=== PATIENT | female | born 1955 | race Caucasian/White ===

== ENCOUNTER → 2023-06-21 07:23 | Outpatient (REF) | payer OTHER, SELFPAY | LOC: RAD 07:23 | PROVIDERS: ATTENDING PHYSICIAN Surgery Vascular Surgery; FAMILY PHYSICIAN Family Medicine | DX: I71.40 Abdominal aortic aneurysm, without rupture, unspecified (principal) | CPT/HCPCS: 76770 ==

== ENCOUNTER → 2023-12-11 08:12 | Outpatient (REF) | payer OTHER, SELFPAY | LOC: HWWDC 08:12 | PROVIDERS: ATTENDING PHYSICIAN Physician Assistant Medical | DX: Z12.31 Encounter for screening mammogram for malignant neoplasm of breast (principal) | CPT/HCPCS: 77063; 77067 ==

== ENCOUNTER → 2023-12-25 07:40 | Outpatient (REF) | payer OTHER, SELFPAY | LOC: RAD 07:40 | PROVIDERS: ATTENDING PHYSICIAN Registered Nurse; FAMILY PHYSICIAN Physician Assistant Medical | DX: I71.40 Abdominal aortic aneurysm, without rupture, unspecified (principal) | CPT/HCPCS: 76770 ==

== ENCOUNTER → 2024-01-05 07:49 | Outpatient (REF) | payer OTHER, SELFPAY ==
[2024-01-05 11:12] LABS: Blood Urea Nitrogen 13 mg/dl (7-17); Calcium 9.2 mg/dl (8.4-10.2); Carbon Dioxide 26 mmol/L (22-30); Chloride 103 mmol/L (98-107); Glucose 131 mg/dl (70-99); Potassium 4.6 mmol/L (3.5-5.1); Sodium 145 mmol/L (135-145); eGFR > 60.00
== END ==
LOC: REG 07:49
PROVIDERS: ATTENDING PHYSICIAN Registered Nurse; FAMILY PHYSICIAN Physician Assistant Medical
DX: I71.40 Abdominal aortic aneurysm, without rupture, unspecified (principal)
CPT/HCPCS: 36415; 80048

== ENCOUNTER → 2024-02-05 07:36 | Outpatient (REF) | payer OTHER, SELFPAY | LOC: RAD 07:36 | PROVIDERS: ATTENDING PHYSICIAN Registered Nurse; FAMILY PHYSICIAN Physician Assistant Medical | DX: I71.40 Abdominal aortic aneurysm, without rupture, unspecified (principal) | CPT/HCPCS: 74174; Q9967 ==

== ENCOUNTER → 2024-08-14 08:06 | Outpatient (REF) | payer OTHER, SELFPAY | LOC: RAD 08:06 | PROVIDERS: ATTENDING PHYSICIAN Surgery Vascular Surgery; FAMILY PHYSICIAN Physician Assistant Medical | DX: I71.43 Infrarenal abdominal aortic aneurysm, without rupture (principal); I71.40 Abdominal aortic aneurysm, without rupture, unspecified | CPT/HCPCS: 71275; 74174; Q9967 ==

== ENCOUNTER → 2025-02-27 08:27 | Outpatient (REF) | payer OTHER, SELFPAY | LOC: RAD 08:27 | PROVIDERS: ATTENDING PHYSICIAN Surgery Vascular Surgery; FAMILY PHYSICIAN Physician Assistant Medical | DX: I71.40 Abdominal aortic aneurysm, without rupture, unspecified (principal) | CPT/HCPCS: 74174; Q9967 ==

== ENCOUNTER → 2025-04-04 06:52 | Outpatient (REF) | payer OTHER, SELFPAY ==
--- NOTE | 2025-04-04 08:15 | CARDSERVLU ---
Echocardiogram with Lumason completed after protocol screening completed. Allergies verified.
Patent IV site: __Rt hand___
IV site flushed with 0.9% NaCl pre and post administration.
Diluted bolus method utilized to enhance visualization of ventricular jaimes.
Total volume given: __1.5__ mL
Patient tolerated all procedures well without complications.
# 22 ernestine placed Rt hand. Lumason given. INT d/c'd. Pressure held. No bleeding noted.
== END ==
LOC: RCS 06:52
PROVIDERS: ATTENDING PHYSICIAN Internal Medicine Cardiovascular Disease; FAMILY PHYSICIAN Physician Assistant Medical
DX: R06.02 Shortness of breath (principal); Z01.810 Encounter for preprocedural cardiovascular examination; I71.43 Infrarenal abdominal aortic aneurysm, without rupture; R94.31 Abnormal electrocardiogram [ECG] [EKG]
CPT/HCPCS: 93307; Q9957

== ENCOUNTER 2025-04-08 09:20 | Inpatient (IN) | payer OTHER, SELFPAY ==
[2025-04-03 09:39] VITALS: BMI 51.7
[2025-04-03 10:19] LABS: Hematocrit 41.9 % (37.0-47.0); Hemoglobin 13.4 g/dL (12.0-16.0); INR 1.03; Mean Corp Hgb Conc. 32.0 g/dL (33.0-37.0); Mean Corpuscular Volume 91.7 fL (81.0-99.0); Nucleated Red Blood Cells % 0 %; PT 13.3 Sec (11.4-14.6); Platelet Count 334 10^3/uL (130-400); Red Cell Dist. Width 13.4 % (11.5-14.5)
[2025-04-03 10:20] LABS: APTT 27.8 Sec (23.4-35.0)
[2025-04-03 10:35] LABS: Blood Urea Nitrogen 12 mg/dl (7-17); Calcium 9.4 mg/dl (8.4-10.2); Carbon Dioxide 27 mmol/L (22-30); Chloride 102 mmol/L (98-107); Estimated Creatinine Clearance 112 ml/min; Glucose 131 mg/dl (70-99); Potassium 4.5 mmol/L (3.5-5.1); Sodium 138 mmol/L (135-145); eGFR > 60.00
[2025-04-08] VITALS (16 sets, daily range): BP systolic 91–158; BP diastolic 37–99
[2025-04-08 10:33] LABS: Glucose - Point of Care 129 mg/dl (70-99)
[2025-04-08] MEDS: BACTROBAN NASAL 1 GRAM NASAL (10:35)
[2025-04-08] MEDS: NSS 500 IV (10:35)
[2025-04-08] MEDS: PERIDEX 0.12% ORAL RINSE 15 ML PO (10:35)
--- NOTE | 2025-04-08 10:49 | W.SUR.PREOP ---
Pre-Operative Surgical Note
-
I have examined this patient prior to the performance of the scheduled procedure.
The patient's condition is unchanged from the time of the current History and
Physical and the patient is able to undergo the scheduled procedure.
[2025-04-08] MEDS: VANCOCIN 530 MG IV (13:06)
[2025-04-08 14:21] LABS: ACT-LR - POC 297 Seconds (116-155)
[2025-04-08 15:13] LABS: ACT-LR - POC 232 Seconds (116-155)
--- NOTE | 2025-04-08 15:32 | W.SUR.POST ---
Surgical Immediate Post Op
Note
Pre Op Diagnosis: AAA
Post Op Diagnosis: AAA
Procedure Performed: EVAR
Primary Surgeon: Sav Daniel III, MD
Secondary Surgeons: N/A
Anesthesia: GETA
Estimated Blood Loss: 50 ml
Fluids: See anesthesia flowsheet
Drains/Shunts: N/A
Specimens/Cultures: N/A
Doppler/Duplex/Angio (Y/N): Y
Complications: None
Operative Findings: Successful exclusion of abdominal aortic aneurysm via endovascular approach
[2025-04-08 15:39] LABS: Glucose - Point of Care 152 mg/dl (70-99)
[2025-04-08 16:06] LABS: Hematocrit 37.4 % (37.0-47.0); Hemoglobin 11.7 g/dL (12.0-16.0); Mean Corp Hgb Conc. 31.3 g/dL (33.0-37.0); Mean Corpuscular Volume 94.2 fL (81.0-99.0); Platelet Count 282 10^3/uL (130-400); Red Cell Dist. Width 13.2 % (11.5-14.5)
[2025-04-08] MEDS: DILAUDID 0.25 MG IV (16:09)
--- NOTE | 2025-04-08 16:27 | OR.RPT ---
Operative Report
Operative Report
Date of Operation: 04/08/2025
Pre Op Diagnosis:
1. Infrarenal abdominal aortic aneurysm
2. 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
Post Op Diagnosis:
1. Infrarenal abdominal aortic aneurysm
2. 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
Procedure:
1. Infrarenal abdominal aortic aneurysm repair using Endologix [place] device:
23 mm [place] main body
10 x 160 mm Ovation right iliac limb (extending into proximal external iliac artery)
14 x 120 mm Ovation left iliac limb
2. Coil embolization of right proximal internal iliac artery (6 mm Vika coils)
3. Introduce wire/catheter into aorta from bilateral common femoral artery access
4. Ultrasound-guided percutaneous access to the bilateral common femoral arteries
5. Pro-glide closure bilateral common femoral arteries
Surgeon: Sav Daniel III, MD
Anesthesia: General
Complications: None
Estimated Blood Loss: 50 cc
History and Indications for Procedure: 69-year-old female with large infrarenal abdominal aortic aneurysm and a saccular aneurysm near the right iliac bifurcation arising from either the distal common iliac artery or the very proximal right internal
iliac artery
Procedure in Detail: Joan Delatorre was correctly identified and placed supine on the operating table. After adequate induction of anesthesia the abdomen, pelvis and bilateral groins were positioned, prepped and draped in the usual sterile fashion.
Preoperative antibiotics were administered. A time out procedure was performed with the nursing and anesthesia staff confirming the patients identity as well as the nature and laterality of the procedure.
Under ultrasound guidance, bilateral femoral artery sheath access was obtained. The arteries were patent and without calcification. A pre-close technique was performed bilaterally with 2 offset Proglide closure devices. The sutures were secured and
tucked under surgical towels for use at the end of the case. An 11 Belgian sheath was placed on the right and an 8 Belgian sheath was placed on the left. The patient was systemically heparinized.
From the right femoral access a Bentson wire was positioned in the descending thoracic aorta. From the left femoral access I advanced a fischer's hook catheter and Glidewire to the aortic bifurcation. I selected the right common iliac artery and
external iliac artery with the Glidewire. Under roadmap guidance using a KMP catheter that was navigated up and over the aortic bifurcation I selected the right internal iliac artery with a Glidewire and catheter. The catheter was advanced into
the proximal internal iliac artery and proper positioning was confirmed. Four 6 mm Vika coils were packed into the proximal right internal iliac artery. Subsequent arteriogram demonstrated a satisfactory result with proper positioning of the
coils in the desired location. I then removed the KMP catheter from the internal iliac artery and pulled it back to the aortic bifurcation. The Bentson wire and KMP were advanced into the proximal descending thoracic aorta. The wire was exchanged
out for a Lunderquist wire. A 16 Belgian dry seal sheath was then advanced over the [place]under[place] wire from the left femoral artery access to the distal abdominal aorta.
A marker pigtail catheter was positioned in the abdominal aorta from the right femoral artery access over the Bentson wire. The 23 mm ALTO aortic main body device was then loaded onto the left femoral Lunderquist wire through the 16 Belgian dry seal
sheath. The delivery system and aortic main body were oriented to the desired position. The delivery system was advanced into the abdominal aorta. An aortogram was performed and clearly identified the origins of the renal arteries bilaterally. The
delivery system was then positioned such that the radiopaque fabric markers were just below the lowest renal artery (right).
The outer sheath was then retracted until the knob met the handle. The first segment of the suprarenal fixation was then deployed by turning the yellow release knob and pulling. I removed the white From the balloon injection port and inflated the
integrated balloon with 5 cc of 4:1 saline:contrast to open the mid crown. I then completely deflated the integrated balloon.
Using the radiopaque markers for orientation, the C-arm was positioned to eliminate any parallax. Another aortogram was performed under magnification view. The main body was then precisely positioned below the lowest renal artery. The pigtail
catheter was pulled down into the AAA away from the suprarenal fixation stent. With the main body in the desired location the remainder of the suprarenal fixation stent was deployed by pulling the second release knob.
The polymer was prepared on the back table. The green fill cap was then removed from the polymer injection port on the handle and the fill syringe was attached to it.The autoinjector was connected to the fill syringe and polymer was instilled.
Fluoro was used to intermittently observe filling of the main body with polymer. A timer was started to keep track of the polymer set time.
A glidewire was introduced through the pigtail catheter from the right. Using a KMP catheter and a glidewire, contralateral gate access was obtained. The catheter was spun in the main body to confirm proper position. The glidewire and catheter were
then advanced proximally. The wire was exchanged out for an Amplatz wire.
A 10 mm x 160 mm iliac limb was then inserted over the stiff wire and advance to the proper position with proper overlap. The limb was deployed without difficulty under roadmap guidance with the distal end in the the proximal right external iliac
artery, covering the saccular aneurysm and the coiled internal iliac artery.
At the 14 minute venus for polymer fill the integrated balloon was used to profile of the proximal aortic seal zone.
The third release knob was pulled to release the catheter from the aortic main body. The catheter handle on the main body deployment system was retracted to reseat the nosecone in the delivery system outer sheath.
A retrograde arteriogram was then performed on the left with a pigtail catheter over the stiff wire. The iliac bifurcation was visualized and lengths were measured for the ipsilateral iliac limb. A 14 mm x 120 mm iliac limb was inserted on the left
under fluoro. Proper overlap was obtained. The limb was deployed under roadmap guidance without difficulty.
Bilateral 12 mm x 40 mm angioplasty balloons were used to profile the overlap in the bilateral limbs proximally as well as profile the entire length of the iliac limbs and the bilateral distal seal zones.
A completion aortogram demonstrated an excellent technical result. The aneurysm was excluded. No endoleaks were seen. There was brisk flow through the stent and iliac limbs. The renal arteries were widely patent bilaterally. The superior mesenteric
artery was patent. The iliac bifurcations were preserved bilaterally.
The Proglide sutures were secured bilaterally after removing the sheaths and wires. Protamine was administered. Additional pressure was applied to the puncture sites bilaterally for 5 minutes. Complete hemostasis was achieved at the puncture sites
bilaterally. The patient had robust pulsatile Doppler signals audible at the dorsalis pedis and posterior tibial artery locations bilaterally at the conclusion of the case.
Sterile dressings were applied.
The patient tolerated the procedure well and was taken to the PACU in stable condition.
Signed:
Sav Daniel III, MD
Vascular Surgery
[facility]
[2025-04-08 16:31] LABS: Blood Urea Nitrogen 13 mg/dl (7-17); Calcium 8.1 mg/dl (8.4-10.2); Carbon Dioxide 23 mmol/L (22-30); Chloride 104 mmol/L (98-107); Estimated Creatinine Clearance 112 ml/min; Glucose 161 mg/dl (70-99); Potassium 4.2 mmol/L (3.5-5.1); Sodium 135 mmol/L (135-145); eGFR > 60.00
[2025-04-08 17:14] LABS: Glucose - Point of Care 157 mg/dl (70-99)
[2025-04-08] MEDS: HEPARIN 5000 UNITS SC ×2 (17:35→23:59)
[2025-04-08] MEDS: NSS 1000 IV (17:35)
[2025-04-08] MEDS: LIPITOR 20 MG PO (18:18)
[2025-04-08] MEDS: NOVOLOG FLEXPEN-LOW RESISTANCE 1 UNITS SC (18:49)
--- NOTE | 2025-04-08 19:00 | PTCARENOTE ---
Received pt. from PACU into ICU rm [id number] s/p EVAR @ approx 1700. Neurovascular checks completed per orders- see flow sheet. B/L LE pale/warm/+cap refill/+sensation/no tense edema. B/L groin sites approximated w surgical glue. Pt. AAOx3, c/o mod pain
@ surg sites; denies pain meds. SR/ST on monitor. SPo2 93% on 3LNC. +BS, abd round/obese. Tolerating diet. Daniel catheter in place draining yellow urine. # 20 R hand w NSS @ 80mL/hr and #20 L FA patent, dressing c/d/i. R rad art line transduced,
calibrated, and monitored; all ports patent and secured. Pt. instructed on how to report care concerns and call bel; placed w in reach. Report given to nightshift RN and hand off competed.
[2025-04-08] MEDS: SYMBICORT 160/4.5 MCG INHALER 1 PUFF INH (19:33)
--- NOTE | 2025-04-08 20:00 | PTCARENOTE ---
Rec'd patient from off-going nurse. Hand-off drip validation done as well as duel nurse vascular check. See worklist for separate vascular charting. Patient is alert and oriented, no complaints of pain at this time. HR is in NSR with rates in the
80s. Arterial line in place right radial. BP with systolic around 130-150. No edema on exam. Patient on 3L NC with sats around 93%, lungs are diminished. Dry cough. Positive bowel sounds, abdomen round, soft. Daniel catheter in place draining light
yellow urine. Puncture sites from surgery in bilateral fem sites. IVs intact. NS @ 80.
[2025-04-08] MEDS: TYLENOL 650 MG PO (20:12)
[2025-04-08 21:34] LABS: Glucose - Point of Care 262 mg/dl (70-99)
[2025-04-08] MEDS: NOVOLOG FLEXPEN 3 UNITS SC (21:54)
[2025-04-09] MEDS: TYLENOL 650 MG PO ×3 (00:04→09:22)
--- NOTE | 2025-04-09 00:43 | PTCARENOTE ---
Continue Q1 neurovascular checks. Doppler pulses easily obtained. Patient complaining of mild headache for which Tylenol was given. No pain at surgical sites. O2 reduced to 2L NC with sats around 93-95%.
[2025-04-09 03:24] LABS: Hematocrit 36.5 % (37.0-47.0); Hemoglobin 12.0 g/dL (12.0-16.0); Mean Corp Hgb Conc. 32.9 g/dL (33.0-37.0); Mean Corpuscular Volume 91.5 fL (81.0-99.0); Platelet Count 299 10^3/uL (130-400); Red Cell Dist. Width 13.0 % (11.5-14.5)
[2025-04-09 03:36] LABS: INR 1.08; PT 14.1 Sec (11.4-14.6)
[2025-04-09 03:37] LABS: APTT 29.3 Sec (23.4-35.0)
[2025-04-09 03:43] LABS: Blood Urea Nitrogen 14 mg/dl (7-17); Calcium 8.7 mg/dl (8.4-10.2); Carbon Dioxide 24 mmol/L (22-30); Chloride 105 mmol/L (98-107); Estimated Creatinine Clearance 112 ml/min; Glucose 167 mg/dl (70-99); Potassium 4.6 mmol/L (3.5-5.1); Sodium 136 mmol/L (135-145); eGFR > 60.00
[2025-04-09] MEDS: NSS 1000 IV (03:57)
--- NOTE | 2025-04-09 04:19 | PTCARENOTE ---
Neurovascular checks continue Q1h, doppler pulses obtainable. Tylenol given for mild headache. No other changes in assessment.
[2025-04-09] MEDS: SYNTHROID 50 MCG PO (05:52)
[2025-04-09 06:00] VITALS: BMI 51.5
[2025-04-09] MEDS: SYMBICORT 160/4.5 MCG INHALER 1 PUFF INH (07:11)
--- NOTE | 2025-04-09 07:55 | W.PN.VS ---
Addendum entered and electronically signed by Sav Gonzales III, MD 04/09/25 08:21:
This patient was seen and examined in collaboration with CARLOS Alberto. I agree with the history and physical exam as well as the assessment and plan. I have the following additions:
Looks great
No complaints
Groin puncture sites are soft bilaterally with no palpable hematoma
Dopp signals present x 4 in the feet
Advance as detailed
Perhaps home later today
Signed:
Sav Gnozales III, MD
Vascular Surgery
[facility]
Original Note:
Today's Communication / Plan
-
Patient seen and examined at bedside with Dr. Sav Gonzales III, below plan reviewed with attending.
Assessment/Plan
-
Assessment: 69 year old female POD #1 EVAR
Plan:
Discontinue IV fluids
Discontinue arterial line
Discontinue gonzales catheter
OOB to chair with progression of ambulation
Continue statin and ASA 81 mg PO daily
Possible discharge later this afternoon pending patient progression
Subjective Data
-
Date of Service: April 09, 2025
Patient seen and examined at bedside, offers no complaints. Denies nausea, vomiting fever, and chills.
Objective Data
-
Vital Signs
Temp Pulse Resp BP Pulse Ox
98.0 F 88 15 127/99 94
04/09/25 03:09 04/09/25 07:14 04/09/25 07:14 04/08/25 18:45 04/09/25 07:14
Intake and Output
04/08/25 04/09/25 04/10/25
06:59 06:59 06:59
Intake Total 2650 / 2650
Output Total 3975 / 3975
Balance -1325 / -1325
Intake:
Oral fluids 1440 / 1440
IV fluids (Total) 1210 / 1210
Normosol 250 / 250
Nss 1,000 ml @ 80 mls/hr IV . 960 / 960
[id number] CHRISTAL Rx#:[id number]
Output:
Urine, Gonzales 3975 / 3975
Lab Results
04/09/25 03:02
04/09/25 03:02
Calcium 8.7 mg/dl (8.4-10.2) 04/09/25 03:02
Physical Exam
-
No apparent distress
No tachycardia
No dyspnea on room air
ABD rotund, non-tender, non-distended
BL groins exofin intact, clean, dry, and intact, no evidence of hematoma
BL LE feet warm, right foot DP and PT doppler and left foot DP palpable
Gonzales draining clear yellow urine
[2025-04-09 08:46] LABS: Glucose - Point of Care 156 mg/dl (70-99)
[2025-04-09] MEDS: NOVOLOG FLEXPEN-LOW RESISTANCE 1 UNITS SC ×2 (09:21→12:47)
[2025-04-09] MEDS: HEPARIN 5000 UNITS SC (09:23)
[2025-04-09] MEDS: ASPIR LOW (ENTERIC COATED) 81 MG PO (09:23)
[2025-04-09] MEDS: THERAGRAN 1 TABLET PO (09:23)
[2025-04-09 09:30] VITALS: BP 114/59
--- NOTE | 2025-04-09 10:06 | PTCARENOTE ---
A-line removed. Daniel removed. Patient up in chair, ambulated to BR. Incisions and neurovascular assessments unchanged. RA Sp02 90%. Tylenol provided for headache. PIV saline locked. Call shipman within reach. Patient thankful for care.
[2025-04-09 11:15] VITALS: BP 135/66
--- NOTE | 2025-04-09 12:05 | CM ---
I.A: By STU Davidson.
Patient lives in a [facility] with an Elevator. DME: CPAP via [employer].
No VN/PT, Outpatient, or STR.
PCP: Dr. Agatha Dominique
Pharm: [facility]
Patient has transport home. PLAN: Anticipate Home No Needs, will watch.
--- NOTE | 2025-04-09 12:07 | W.DS.TRANS ---
DC Summary - Breaster
-
Discharge Instructions:
Discharge Diagnosis/Procedures Infrarenal abdominal aortic aneurysm
Saccular aneurysm arising from either the distal
right common iliac artery or the very proximal
right internal iliac artery
Procedure:
1. Infrarenal abdominal aortic aneurysm repair
using Endologix [place] device:
23 mm [place] main body
10 x 160 mm Ovation right iliac limb (extending
into proximal external iliac artery)
14 x 120 mm Ovation left iliac limb
2. Coil embolization of right proximal internal
iliac artery (6 mm Vika coils)
3. Introduce wire/catheter into aorta from
bilateral common femoral artery access
4. Ultrasound-guided percutaneous access to the
bilateral common femoral arteries
5. Pro-glide closure bilateral common femoral
arteries
Diet As tolerated
Activity No strenuous activity
Driving Restrictions No driving for 1 week
Bathing Restrictions OK to Shower
Instructions:
Stand-Alone Forms: Vascular Surg Discharge Instr
Changes to Home Medications: Yes
Discharge Medications:
DC Medications w/original date entered in [facility]
multivitamin with folic acid 400 mcg tablet (Tab-A-David) 1 tab PO DAILY Supplement 06/02/15
atorvastatin 10 mg tablet 20 mg PO QPM High cholesterol 09/30/19
metformin 500 mg tablet 500 mg PO BID Diabetes 09/30/19
Held on 04/09/25. Instructions: Resume on 04/11/25.
albuterol sulfate 90 mcg/actuation aerosol inhaler 2 puff inhalation R Q4HPRN PRN wheezing, SOB #3 inhalations 12/02/20
levothyroxine 50 mcg tablet 50 mcg PO DAILY AT 0700 #30 tabs 12/02/20
aspirin 81 mg tablet 81 mg PO DAILY Blood Clot Prevention/Tx 03/31/25
biotin 5,000 mcg chewable tablet 5,000 mcg PO DAILY Supplement 03/31/25
budesonide-formoterol HFA 160 mcg-4.5 mcg/actuation aerosol inhaler (Symbicort) 1 puff inhalation BID Lung/Breathing Issues 04/08/25
Home Medication Changes
metformin 500 mg tablet 500 mg PO BID Diabetes 09/30/19
Held on 04/09/25. Instructions: Resume on 04/11/25.
Pending Results: No
--- NOTE | 2025-04-09 12:34 | PTCARENOTE ---
Ambulated in hallway, no issues. Plan to d/c patient this afternoon.
[2025-04-09 12:46] LABS: Glucose - Point of Care 156 mg/dl (70-99)
--- NOTE | 2025-04-09 13:56 | PTCARENOTE ---
Patient discharged home via WC. D/c paperwork given. IVs removed. All questions answered. Belongings returned. Pt thankful for care.
--- NOTE | 2025-04-09 14:39 | CM ---
PLAN: Home No Needs.
== END 2025-04-09 13:56 | disposition home or self-care (01) | DRG 269 ==
LOC: ICU 09:20
PROVIDERS: Nurse Practitioner; ADMITTING PHYSICIAN Surgery Vascular Surgery; PRIMARYCARE PHYSICIAN Physician Assistant Medical
PROC: 06L Lower Veins, Occlusion (ICD-10-PCS; 2025-04-08)
PROC: 04V03EZ Restriction of Abdominal Aorta with Branched or Fenestrated Intraluminal Device, One or Two Arteries, Percutaneous Approach (ICD-10-PCS; 2025-04-08)
DX: I71.43 Infrarenal abdominal aortic aneurysm, without rupture (principal)
CPT/HCPCS: 34705; 34713; 36415; 71046; 80048; 82962; 85025; 85027; 85610; 85730; 86850; 86900; 86901; 94640; C1725; C1760; C1769; C1892; C1894

== ENCOUNTER → 2025-04-14 10:37 | Outpatient (REF) | payer OTHER, SELFPAY | LOC: RAD 10:37 | PROVIDERS: ATTENDING PHYSICIAN Registered Nurse; FAMILY PHYSICIAN Physician Assistant Medical | DX: I71.40 Abdominal aortic aneurysm, without rupture, unspecified (principal); I72.3 Aneurysm of iliac artery | CPT/HCPCS: 93922; 93926 ==